=== PATIENT | female | born 1950 | race Caucasian/White ===

== ENCOUNTER → 2020-09-12 | Outpatient (CLI) | payer OTHER ==
[~2020-09-12] MED LIST: ASPIRIN EC81 MG PO; ASPIRIN81 MG PO; CALAN SR180 MG PO; DECADRON6 MG PO; HYDROCHLOROTHIA25 MG PO; IMDUR ER TAB 6060 MG PO; LIORESAL TAB 1010 MG PO; LIPITOR TAB 2020 MG PO; PROTONIX40 MG PO; WELLBUTRIN SR150 M1 PO
== END ==
LOC: CT 13:00
DX: R91.8 Other nonspecific abnormal finding of lung field (principal)
CPT/HCPCS: 71250

== ENCOUNTER 2020-10-24 11:01 | Emergency (ER) | payer OTHER ==
[2020-10-24 12:14] LABS: BUN/CREATININE RATIO 12 (0-10)
[2020-10-24 12:26] LABS: HEMOGLOBIN 13.2 gm/dl (12.3-15.3); RED BLOOD COUNT 4.44 M/UL (4.00-5.10); WHITE BLOOD COUNT 6.5 K/UL (4.5-11.0)
== END 2020-10-24 15:45 | disposition home or self-care (01) ==
LOC: ER1 11:01
PROVIDERS: Physician Assistant
DX: R07.9 Chest pain, unspecified (principal); I48.91 Unspecified atrial fibrillation; E78.5 Hyperlipidemia, unspecified; Z90.49 Acquired absence of other specified parts of digestive tract
CPT/HCPCS: 36415; 71045; 80053; 82550; 82553; 83874; 84484; 85025; 93005; 99285

== ENCOUNTER → 2021-01-03 | Outpatient (CLI) | payer OTHER, SELFPAY ==
[2021-01-03 15:03] LABS: BUN/CREATININE RATIO 9 (0-10)
[2021-01-03 15:43] LABS: RED BLOOD COUNT 4.48 M/UL (4.00-5.10); WHITE BLOOD COUNT 6.3 K/UL (4.5-11.0)
== END ==
LOC: LAB 11:58
PROVIDERS: Internal Medicine Cardiovascular Disease
DX: I48.92 Unspecified atrial flutter (principal); R00.2 Palpitations
CPT/HCPCS: 36415; 71046; 80048; 85025

== ENCOUNTER → 2021-01-06 | Outpatient (CLI) | payer OTHER, SELFPAY | LOC: ECHO 09:00 | DX: I48.92 Unspecified atrial flutter (principal); R00.2 Palpitations; I51.7 Cardiomegaly; I50.31 Acute diastolic (congestive) heart failure | CPT/HCPCS: ECHO; 93306 ==

== ENCOUNTER 2021-01-07 10:16 | Outpatient (CLI) | payer OTHER, SELFPAY ==
[~2021-01-07] VITALS: Ht 157.5 cm; Wt 92.1 kg
== END 2021-01-08 10:29 | disposition home or self-care (01) ==
LOC: CATH 10:16 → MED SURG 4 17:15 → CATH 01-08 10:29
DX: I48.92 Unspecified atrial flutter (principal); K21.9 Gastro-esophageal reflux disease without esophagitis; E78.00 Pure hypercholesterolemia, unspecified; E04.2 Nontoxic multinodular goiter; Z86.16 Personal history of COVID-19; Z87.891 Personal history of nicotine dependence; Z79.82 Long term (current) use of aspirin; Z79.899 Other long term (current) drug therapy
CPT/HCPCS: 93005; 93609; 93621; 99152; 99153; C1730; C1733; C1766; J1644; J2250; J3010; J7030

== ENCOUNTER → 2021-02-13 | Outpatient (CLI) | payer OTHER | LOC: LAB 11:27 | PROVIDERS: Internal Medicine Cardiovascular Disease | DX: R53.83 Other fatigue (principal); R00.2 Palpitations; R06.02 Shortness of breath | CPT/HCPCS: 36415; 80048 ==

== ENCOUNTER → 2022-01-22 | Outpatient (CLI) | payer OTHER ==
[~2022-01-22] MED LIST changes: +ALDACTONE25 MG PO; +COREG6.25 MG PO; +IBU800 MG PO; -LIPITOR TAB 2020 MG PO; +LIPITOR40 MG PO; +SYSTANE 0.3-0.415 ML EYEBOTH; +SYSTANE ULTRA 010 ML EYEBOTH
== END ==
LOC: KOH-I 08:05
DX: M54.42 Lumbago with sciatica, left side (principal); M43.17 Spondylolisthesis, lumbosacral region; M51.87 Other intervertebral disc disorders, lumbosacral region
CPT/HCPCS: 72148

== ENCOUNTER → 2022-04-17 | Outpatient (CLI) | payer OTHER | LOC: KOH-I 14:09 | DX: M25.552 Pain in left hip (principal); M70.62 Trochanteric bursitis, left hip; M16.12 Unilateral primary osteoarthritis, left hip | CPT/HCPCS: 73721 ==

== ENCOUNTER → 2022-05-14 | Outpatient (CLI) | payer OTHER | LOC: CT 13:52 → EDBD 14:30 → CT 14:30 | DX: M87.9 Osteonecrosis, unspecified (principal) | CPT/HCPCS: 73700 ==